=== PATIENT | male | born 1980 | race African-American/Black ===

== ENCOUNTER → 2017-06-01 | Outpatient (CLI) | payer BC ==
--- NOTE | 2017-06-01 18:24 | Diagnostic Imaging Report ---
PROCEDURE:ABDOMINAL ULTRASOUND COMPARISON:MRI of the liver from 04/25/2013 INDICATIONS:HEPATIC CIRRHOSIS TECHNIQUE: Porter-scale and color sonographic images were obtained of the abdomen in transverse and sagittal planes. FINDINGS: Liver: 15.1 cm in length in right midclavicular line. Normal echogenicity. Nodular contour with coarse liver parenchyma. No masses. Main portal vein: 1.3 cm, hepatopetal flow Gallbladder: No gallbladder wall thickening, stones, or pericholecystic fluid. Common Bile Duct: 0.4 cm Sonographic Mcdonald's sign: Negative Right kidney: 8.6 cm in length Left kidney: 10.2 cm in length No stones, hydronephrosis, or solid renal masses. Spleen: 12.1 cm in length. Pancreas: The visualized portions are unremarkable. Inferior vena cava: Patent Aorta: Midportion of the aorta is obscured by overlying bowel gas. Ascites: None CONCLUSION: Nodular liver contour and heterogeneous parenchymal echotexture consistent with cirrhosis. No focal liver masses. Dictated by: Bolivar Rudolph M.D. on 06/01/2017 at 18:33 Electronically approved by: Bolivar Rudolph M.D. on 06/01/2017 at 18:33
== END ==
LOC: US 14:12
PROVIDERS: ATTEND Internal Medicine
DX: B18.1 Chronic viral hepatitis B without delta-agent (principal)
CPT/HCPCS: 76700

== ENCOUNTER → 2018-04-26 | Outpatient (CLI) | payer BC ==
[~2018-04-26] MED LIST: GADOBENATE DIMEGLUMINE 1 ML IV ONE
--- NOTE | 2018-05-01 13:27 | Diagnostic Imaging Report ---
EXAM: MRI of the abdomen with and without contrast. INDICATION: Chronic hepatitis B. COMPARISON: Abdominal MRI dated 04/25/2013. TECHNIQUE: Multiplanar and multisequence imaging was performed of the abdomen before and after administration of 20 cc of MultiHance. DISCUSSION: LOWER THORAX: Unremarkable. HEPATOBILIARY: Mildly nodular hepatic contour. No focal hepatic lesions. No biliary ductal dilation. GALLBLADDER: No radio-opaque stones or sludge. No wall thickening. SPLEEN: Splenomegaly measuring 14.2 cm. PANCREAS: No focal masses or ductal dilatation. ADRENALS: No adrenal nodules KIDNEYS/URETERS: Kidneys enhance symmetrically. No hydronephrosis. No cystic or solid mass lesions. GI TRACT: Visualized bowel loops are unremarkable. No evidence of bowel obstruction. LYMPH NODES: No lymphadenopathy. VESSELS: Main portal vein is approximately 1.7 cm, suggestive of portal hypertension. PERITONEUM / RETROPERITONEUM: No free air or fluid. BONES: Unremarkable. SOFT TISSUES: Unremarkable. IMPRESSION: Cirrhotic changes of liver with signs of portal hypertension such as splenomegaly and dilated portal vein. No focal lesion visualized. Signed by: Dr. Nabor Zarate MD on 05/01/2018 1:23 PM
== END ==
LOC: MRI 09:24
PROVIDERS: ATTEND Internal Medicine
DX: K74.60 Unspecified cirrhosis of liver (principal); B18.0 Chronic viral hepatitis B with delta-agent; R79.89 Other specified abnormal findings of blood chemistry; Z13.29 Encounter for screening for other suspected endocrine disorder; Z13.228 Encounter for screening for other metabolic disorders; Z13.0 Encounter for screening for diseases of the blood and blood-forming organs and certain disorders involving the immune mechanism
CPT/HCPCS: 74183; A9577

== ENCOUNTER → 2019-12-26 | Outpatient (CLI) | payer BC ==
[~2019-12-26] MED LIST changes: +SODIUM CHLORIDE 0.9% 50ML 50 ML ONE
--- NOTE | 2019-12-26 11:11 | Diagnostic Imaging Report ---
EXAM: MRI of the abdomen with and without contrast. INDICATION: Sclerosis of liver, HBV, assess for HCC COMPARISON: No prior imaging available for comparison at the time of interpretation. TECHNIQUE: Multiplanar and multisequence imaging was performed of the abdomen before and after administration of 20 mL intravenous MultiHance. DISCUSSION: LOWER THORAX: Unremarkable. HEPATOBILIARY: Subtle contour nodularity. No focal hepatic lesions. No biliary ductal dilation. No signal loss on opposed phase images. GALLBLADDER: No gallstones. No wall thickening or pericholecystic fluid. SPLEEN: Mild splenomegaly, 14 cm in long axis PANCREAS: No focal masses or ductal dilatation. ADRENALS: No adrenal nodules KIDNEYS/URETERS: No hydronephrosis. No cystic or solid mass lesions. GI TRACT: Visualized bowel loops are unremarkable. No evidence of bowel obstruction. LYMPH NODES: No lymphadenopathy. VESSELS: Patent main portal vein 2.0 cm in diameter, suggestive of portal hypertension. No significant esophageal perigastric varices PERITONEUM / RETROPERITONEUM: No significant ascites BONES: Unremarkable. SOFT TISSUES: Mild gynecomastia bilaterally. IMPRESSION: Mildly cirrhotic appearance of the liver with suggestion of portal hypertension with mild splenomegaly and dilated portal vein. No suspicious liver lesions. Signed by: Lico Andrade MD on 12/26/2019 11:08 AM
== END ==
LOC: MRI 08:54
PROVIDERS: ATTEND Internal Medicine
DX: K74.60 Unspecified cirrhosis of liver (principal)
CPT/HCPCS: 74183; A9577

== ENCOUNTER → 2021-03-29 | Outpatient (CLI) | payer BC | LOC: US 08:50 | PROVIDERS: ATTEND Internal Medicine Gastroenterology | DX: K74.60 Unspecified cirrhosis of liver (principal); B18.0 Chronic viral hepatitis B with delta-agent | CPT/HCPCS: 76700 ==

== ENCOUNTER → 2022-08-01 | Outpatient (CLI) | payer BC | LOC: RAD 08:44 | PROVIDERS: ATTEND Internal Medicine Gastroenterology | DX: B18.0 Chronic viral hepatitis B with delta-agent (principal) | CPT/HCPCS: 76700 ==